=== PATIENT | male | born 1965 | race Caucasian/White ===

== ENCOUNTER 2017-10-15 12:49 | Outpatient (CLI) | END 2017-10-15 12:50 | disposition home or self-care (01) | LOC: CAR 12:49 → EDBD 12:49 → CAR 12:50 | PROVIDERS: ATTEND Family Medicine | DX: R06.00 Dyspnea, unspecified (principal) | CPT/HCPCS: 94761 ==

== ENCOUNTER 2017-11-14 16:53 | Outpatient (CLI) | END 2017-11-14 17:17 | disposition short-term general hospital (02) | LOC: AMBL 16:53 | PROVIDERS: ATTEND Family Medicine | DX: R06.02 Shortness of breath (principal); R53.1 Weakness; R05 Cough; E86.0 Dehydration; R00.0 Tachycardia, unspecified; C34.90 Malignant neoplasm of unspecified part of unspecified bronchus or lung; C14.0 Malignant neoplasm of pharynx, unspecified; R11.0 Nausea ==

== ENCOUNTER 2017-12-03 21:17 | Outpatient (CLI) | END 2017-12-03 21:43 | disposition short-term general hospital (02) | LOC: AMBL 21:17 | PROVIDERS: ATTEND Family Medicine | DX: R50.9 Fever, unspecified (principal); R11.10 Vomiting, unspecified; R53.1 Weakness; R09.89 Other specified symptoms and signs involving the circulatory and respiratory systems; I48.91 Unspecified atrial fibrillation; R06.9 Unspecified abnormalities of breathing; G89.29 Other chronic pain; C14.0 Malignant neoplasm of pharynx, unspecified; R40.2411 Glasgow coma scale score 13-15, in the field [EMT or ambulance]; Z93.1 Gastrostomy status ==